=== PATIENT | male | born 1970 ===

== ENCOUNTER 2017-08-19 10:13 | Emergency (ER) | payer BC ==
[2017-08-19 10:17] VITALS: PULSE 89; TEMP 98; O2SAT 99; BMI 25.0
[2017-08-19 10:30] VITALS: RESP 16
[2017-08-19 12:02] LABS: BASO % 0.4 % (0.0-2.0); EOS # 0.1 K/uL (0.0-0.7); EOS % 3.3 % (0.0-4.0); HEMOGLOBIN 14.2 g/dL (12.0-18.0); LYMPH # 0.9 K/uL (1.0-4.3); LYMPH % 28.3 % (20.0-40.0); MEAN CELL VOLUME 82.9 fl (80.0-94.0); MEAN CORPUSCULAR HEMOGLOBIN 29.6 pg (27.0-31.0); MEAN CORPUSCULAR HGB CONC 35.7 g/dL (33.0-37.0); MEAN PLATELET VOLUME 7.4 fl (7.2-11.7); MONO # 0.3 K/uL (0.0-0.8); MONO % 9.8 % (0.0-10.0); NEUT # 1.9 K/uL (1.8-7.0); NEUT % 58.2 % (50.0-75.0); NRBC % 0.1 % (0.0-0.0); RBC 4.79 Mil/uL (4.40-5.90); RED CELL DISTRIBUTION WIDTH 13.3 % (11.5-14.5); WHITE BLOOD COUNT 3.2 K/uL (4.8-10.8)
[2017-08-19 12:10] LABS: ALB/GLOB RATIO 1.3 (1.0-2.1); ALBUMIN 4.3 g/dL (3.5-5.0); ALT/SGPT 46 U/L (21-72); AST/SGOT 31 U/L (17-59); BLOOD UREA NITROGEN 11 mg/dl (9-20); CALCIUM 9.4 mg/dL (8.4-10.2); GFR AFRICAN-AMERICAN > 60; GFR NON-AFRICAN AMERICAN > 60
[2017-08-19 12:27] LABS: URINE BILIRUBIN NEGATIVE (NEGATIVE); URINE BLOOD NEGATIVE (NEGATIVE); URINE CLARITY CLEAR (Clear); URINE COLOR COLORLESS (YELLOW); URINE GLUCOSE (UA) NEG (Normal); URINE LEUKOCYTE ESTERASE NEG Leu/uL (Negative); URINE PROTEIN NEGATIVE (NEGATIVE); URINE UROBILINOGEN 0.2-1.0 mg/dL (0.2-1.0)
--- NOTE | 2017-08-19 15:05 | US ---
HISTORY: scrotal pain and hematuria TECHNIQUE: Realtime sonography through the scrotum with color and doppler flow. COMPARISON: None Available. FINDINGS: RIGHT TESTICLE: Measures 4.6 x 2.1 x 3 cm. Normal echotexture and flow. RIGHT EPIDIDYMIS: Epididymal head measures 1.1 x 0.7 x 1.3 cm. Grossly unremarkable appearance with normal flow. LEFT TESTICLE: Measures 4 x 2.2 x 2.6 cm. Normal echotexture and flow. LEFT EPIDIDYMIS: Epididymal head measures 1.1 x 0.6 x 0.9 cm. Grossly unremarkable appearance with normal flow. HYDROCELE: Complex small left sided hydrocele seen with low-level echoes. VARICOCELE: None. OTHER FINDINGS: None. IMPRESSION: No evidence of testicular torsion or mass lesion. Small left-sided complex hydrocele. Heterogeneous echotexture of the left epididymis and the possibility of left epididymitis should be considered.
--- NOTE | 2017-08-19 15:09 | ED PDOC ---
HPI: Male Pain Time Seen by Provider: 08/19/17 10:27 Chief Complaint (Nursing): Male Genitourinary Chief Complaint (Provider): Testicular Pain History Per: Patient, Last [employer] History/Exam Limitations: language barrier Onset/Duration Of Symptoms: Days (three) Current Symptoms Are (Timing): Still Present Severity: Mild Quality Of Discomfort: Sharp Associated Symptoms: denies: Fever Past Medical History Reviewed: Historical Data, Nursing Documentation, Vital Signs Vital Signs: Last Vital Signs Temp 98 F 08/19/17 10:16 Pulse 89 08/19/17 10:16 Resp 16 08/19/17 10:27 BP 158/54 H 08/19/17 10:16 Pulse Ox 99 08/19/17 10:16 - Family History Family History: States: Unknown Family Hx - Allergies Allergies/Adverse Reactions: Allergies Allergy/AdvReac Type Severity Reaction Status Date / Time No Known Allergies Allergy Verified 08/19/17 10:27 Review of Systems ROS Statement: Except As Marked, All Systems Reviewed And Found Negative Genitourinary Male: Positive for: Scrotal Pain, Other (spermaturia) Physical Exam - Reviewed Nursing Documentation Reviewed: Yes Vital Signs Reviewed: Yes - Physical Exam Appears: Positive for: Well, Non-toxic, No Acute Distress Head Exam: Positive for: ATRAUMATIC, NORMAL INSPECTION, NORMOCEPHALIC Skin: Positive for: Normal Color, Warm, Dry Neck: Positive for: Normal, Painless ROM, Supple. Negative for: Decreased ROM Cardiovascular/Chest: Positive for: Regular Rate, Rhythm Respiratory: Positive for: Normal Breath Sounds Pulses-Carotid (L): 2+ Pulses-Carotid (R): 2+ Pulses-Radial (L): 2+ Pulses-Radial (R): 2+ Male Genital Exam: Positive for: normal genitalia, epididymal tenderness, testicular tenderness (R). Negative for: urethral discharge Back: Positive for: Normal Inspection - Laboratory Results Result Diagrams: 08/19/17 11:45 08/19/17 11:45 - ECG O2 Sat by Pulse Oximetry: 99 Disposition - Clinical Impression Clinical Impression: Hydrocele in adult - Patient ED Disposition Is Patient to be Admitted: No Doctor Will See Patient In The: Office Counseled Patient/Family Regarding: Studies Performed, Diagnosis, Need For Followup - Disposition Referrals: Pernell Loyd MD [Medical Doctor] - Disposition: Routine/Home Disposition Time: 15:12 Condition: STABLE Forms: [facility] (Monegasque), [facility] (Nepali) Print Language: [place]
[2017-08-19 15:27] VITALS: BP 148/70
== END 2017-08-19 15:24 | disposition home or self-care (01) ==
LOC: H.ER 10:13
DX: N43.3 Hydrocele, unspecified (principal)